=== PATIENT | female | born 1980 | race Caucasian/White ===

== ENCOUNTER 2021-12-11 05:55 | Emergency (ER) | payer OTHER ==
[~2021-12-11] VITALS: Ht 175.3 cm; Wt 108.9 kg
[2021-12-11] MEDS ORDERED: HYDROCODONE/APAP 5-325MG TABLET PO ONE (07:00)
[2021-12-11] MEDS ORDERED: HYDROCODONE/APAP 5-325MG TABLET ONE (07:19)
--- NOTE | 2021-12-11 07:52 | NUR ---
PT IS IN ROOM #2B. DR SHEPARD EVALUATED THE PT.
[2021-12-11] MEDS ORDERED: NEOMY/BACITRA/POLYMYXIN B OINT UD PACKET TP ONE ×2 (08:30→08:49)
[2021-12-11] MEDS ORDERED: SULF1TAB48 PO (08:37)
[2021-12-11] MEDS ORDERED: CEPH500C2 PO (08:37)
[2021-12-11] MEDS ORDERED: IBUP-1955 PO (08:37)
[2021-12-11] MEDS ORDERED: TDAP DIPH,PERTUSS,TET VAC/PF 0.5 ML DISP.SYRIN IM ONE (08:45)
[2021-12-11] MEDS ORDERED: KETOROLAC TROMETHAMINE 15 MG INJ IM ONE (09:45)
[2021-12-11] MEDS ORDERED: DOXY100C5 PO (09:56)
--- NOTE | 2021-12-11 10:22 | NUR ---
PT WAS D/C'd TO HOME. D/C INSTRUCTIONS GIVEN TO THE PT BY DR SHEPARD.
[2021-12-11 10:23] VITALS: BP 146/88
== END 2021-12-11 10:24 | disposition home or self-care (01) ==
LOC: ER 06:04
DX: S52.501D Unspecified fracture of the lower end of right radius, subsequent encounter for closed fracture with routine healing (principal); S52.601D Unspecified fracture of lower end of right ulna, subsequent encounter for closed fracture with routine healing; Z79.1 Long term (current) use of non-steroidal anti-inflammatories (NSAID); Z79.899 Other long term (current) drug therapy; W34.00XD Accidental discharge from unspecified firearms or gun, subsequent encounter
CPT/HCPCS: 73090; 73110; 96372; 99284; J1885; A4663